=== PATIENT | female | born 2005 | race Caucasian/White ===

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

== ENCOUNTER 2025-05-01 15:37 | Emergency (ER) | payer OTHER ==
[~2025-05-01] VITALS: Ht 165.1 cm; Wt 59.0 kg
[~2025-05-01 15:37] MED LIST changes: +KETO10TA2 PO
[2025-05-01] MEDS ORDERED: GALLIFREY5 MG PO (16:00)
[2025-05-01 17:10] LABS: BASO % 0.4 % (0.1-1.2); EOS # 0.12 (0.04-0.54); EOS % 0.8 % (0.7-7.0); LYMPH # 1.59 (1.18-3.74); LYMPH % 10.4 % (19.3-53.1); MEAN PLATELET VOLUME 9.30 fl (9.4-12.4); MONO # 1.20 (0.24-0.82); MONO % 7.8 % (4.7-12.5); NEUT # 12.32 (1.56-6.13); NEUT % 80.1 % (34.0-71.1); RED CELL DISTRIBUTION WIDTH 11.3 % (11.6-14.4)
[2025-05-01 17:14] LABS: ERYTHROCYTE SEDIMENTATION RATE 51 mm/hr (0-20)
[2025-05-01 17:33] LABS: ALT/SGPT 13.0 U/L (12-78); AST/SGOT 10.0 U/L (15-37); BILIRUBIN TOTAL 0.65 mg/dL (0.3-1.2); BUN CREA RATIO 15.0 (7.0-25.0); CREATININE SERUM 0.91 mg/dL (0.55-1.02); GFR 79.64; GLOBULINA 4.4 G/DL (2.4-3.5); GLUCOSE FASTING 86.0 mg/dL (65-100); OSMOLALITY SERUM 279.0 MOSM/KG (275-295)
[2025-05-01] MEDS ORDERED: KETOROLAC TROMETHAMINE 30 MG VIAL IV STA (17:48)
[2025-05-01] MEDS ORDERED: CEFTRIAXONE SODIUM 1,000 MG VIAL IV STA (17:49)
[2025-05-01] MEDS ORDERED: AMOX1TAB5 PO (20:13)
[2025-05-01] MEDS ORDERED: CLINDAMYCIN PHOSPHATE 150 MG/ML (600mg) IV STA (20:28)
== END 2025-05-01 22:51 | disposition home or self-care (01) ==
LOC: ER 15:44 → EMR PED 15:44
DX: M27.2 Inflammatory conditions of jaws (principal); Z98.818 Other dental procedure status; J32.8 Other chronic sinusitis